=== PATIENT | male | born 1950 | race Caucasian/White ===

== ENCOUNTER 2016-08-07 16:06 | Observation (INO) | payer OTHER ==
[~2016-08-07] VITALS: Ht 162.6 cm; Wt 127.0 kg
[~2016-08-07 16:06] MED LIST: ADULT LOW DOSE81 M1 PO; ADVAIR 250/501 DIS1 IH; ADVAIR 250/501 DISK IH; ASPIRIN81 M1 PO; BENICAR20 MG PO; Benicar PO; CLARITIN10 M3 PO; COMBIVENT INH14.7 GM IH; COMBIVENT RESPIM4 GM IH; COMBIVENT200 INHALA IH; CYANOCOBALAM1000 MCG PO; DESYREL12.5 MG PO; Desyrel PO; EXELON6 MG PO; FOLIC ACID1 MG PO; GLIPIZIDE XL5 MG PO; GLIPIZIDE5 M1 PO; GLUCOPHAGE1000 MG PO; GLUCOPHAGE500 MG PO; IMDUR60 MG PO; ISOSORBIDE MONO60 MG PO; LANTUS 3 M100 UNITS/ SC; LEVAQUIN500 MG PO; LO-DOSE ASPIRIN81 M1 PO; LORATADINE10 M2 PO; METFORMIN HCL1000 MG PO; NAPROXEN500 MG PO; NOVOLOG 10100 UNITS/ SC; NOVOLOG PE100 UNITS/ SC; OMEPRAZOLE40 M1 PO; RANITIDINE HCL150 MG PO; RIVASTIGMINE6 MG PO; Ranitidine HCl PO; SIMVASTATIN40 M1 PO; SIMVASTATIN40 MG PO; TRAZODONE HCL50 MG PO; Tums,OsCal PO; VITAMIN B-121000 MCG PO; ZANTAC150 M1 PO; ZITHROMAX250 MG PO; ZOCOR40 MG PO; Zocor PO
[2016-08-07 16:45] LABS: HEMATOCRIT 42.4 % (38.0-50.0); MCH 34.9 PG (29.0-34.0); MCHC 36.8 G/DL (30.0-36.0); MCV 94.9 FL (86-99); PLATELET COUNT 105 K/uL (156-360); RBC DIS.WIDTH-CV 12.1 % (11.8-14.6); RBC DIS.WIDTH-SD 40.9 % (39-53); RED BLOOD COUNT 4.47 M/uL (4.00-5.50); WHITE BLOOD COUNT 5.9 K/uL (4.1-10.2)
[2016-08-07 16:53] LABS: CHLORIDE 102 mEq/L (99-109); POTASSIUM 3.9 mEq/L (3.7-5.4); SODIUM 138 mEq/L (136-147)
[2016-08-07 16:55] LABS: GLUCOSE 142 mg/dL (70-99)
[2016-08-07 16:56] LABS: ANION GAP 13 MEQ/L (2-14)
[2016-08-07 16:59] LABS: GFR ESTIMATE (CALCULATED) > 59 mL/min/
[2016-08-07 17:00] LABS: UREA NITROGEN (BUN) 10 mg/dL (9-23)
[2016-08-07 17:05] LABS: TROP-I INTERPRETATION NEGATIVE; TROPONIN-I < 0.01 ng/mL (0.0-0.30)
[2016-08-07 22:17] VITALS: BP 108/75
[2016-08-07 22:17] LABS: POINT-OF-CARE METER ID UU14162513
[2016-08-07 23:25] LABS: TOTAL BILIRUBIN 1.1 mg/dL (0.0-1.0)
[2016-08-07 23:26] LABS: ALKALINE PHOSPHATASE 49 IU/L (3-129); INTER. NORMALIZED RATIO 1.1; PROTHROMBIN TIME 11.4 (9.2-11.2); PTT 30.3 (25-32); SERUM ETHYL ALCOHOL < 10 mg/dL
[2016-08-07 23:28] LABS: DIRECT BILIRUBIN 0.5 mg/dL (0.0-0.3)
[2016-08-07 23:34] LABS: TROP-I INTERPRETATION NEGATIVE; TROPONIN-I < 0.01 ng/mL (0.0-0.30)
[2016-08-08 04:14] VITALS: BP 127/76
[2016-08-08 05:35] LABS: HEMATOCRIT 40.8 % (38.0-50.0); MCH 35.9 PG (29.0-34.0); MCV 96.9 FL (86-99); MEAN PLAT.VOLUME 11.5 uM^3 (9.0-12.4); PLATELET COUNT 103 K/uL (156-360); RBC DIS.WIDTH-CV 12.5 % (11.8-14.6); RBC DIS.WIDTH-SD 43.9 % (39-53); RED BLOOD COUNT 4.21 M/uL (4.00-5.50); WHITE BLOOD COUNT 5.7 K/uL (4.1-10.2)
[2016-08-08 06:03] LABS: ALKALINE PHOSPHATASE 47 IU/L (3-129); ANION GAP 8 MEQ/L (2-14); CHLORIDE 100 MEQ/L (99-109); GFR ESTIMATE (CALCULATED) > 59 mL/min/; POTASSIUM 3.6 MEQ/L (3.7-5.4); SAMPLE HEMOLYSIS CHECK 0; SAMPLE ICTERIC CHECK 0; SAMPLE LIPEMIA CHECK 0; SODIUM 135 MEQ/L (136-147); UREA NITROGEN (BUN) 10 mg/dL (9-23)
[2016-08-08 06:09] LABS: GLUCOSE 304 mg/dL (70-99)
[2016-08-08 06:14] LABS: TROP-I INTERPRETATION NEGATIVE; TROPONIN-I < 0.01 ng/mL (0.0-0.30)
[2016-08-08 06:54] LABS: Estimated Average Glucose 186 mg/dL (70-123); HEMOGLOBIN A1c (GLYCOHEMOGLOB) 8.1 % HGB (Below 5.7)
[2016-08-08 08:38] VITALS: BP 163/86
[2016-08-08 12:16] VITALS: BP 133/77
[2016-08-08 12:35] LABS: POINT-OF-CARE METER ID UU14162513
[2016-08-08 16:54] VITALS: BP 152/77
[2016-08-08 17:37] LABS: POINT-OF-CARE METER ID UU14162513
== END 2016-08-08 18:22 | disposition home or self-care (01) ==
LOC: EME → EDBD 16:06 → EDOF 20:41 → 5WEST 20:41 → EDOF 20:41 → 5WEST 21:46
PROVIDERS: Emergency Medicine; Hospitalist; Internal Medicine; Physician Assistant
DX: R07.89 Other chest pain (principal); I25.10 Atherosclerotic heart disease of native coronary artery without angina pectoris; E78.5 Hyperlipidemia, unspecified; I10 Essential (primary) hypertension; Z95.1 Presence of aortocoronary bypass graft; Z87.891 Personal history of nicotine dependence; R94.31 Abnormal electrocardiogram [ECG] [EKG]; Z79.82 Long term (current) use of aspirin; E11.9 Type 2 diabetes mellitus without complications; J44.9 Chronic obstructive pulmonary disease, unspecified; Z79.51 Long term (current) use of inhaled steroids; K21.9 Gastro-esophageal reflux disease without esophagitis; D69.6 Thrombocytopenia, unspecified; G30.9 Alzheimer's disease, unspecified; F02.80 Dementia in other diseases classified elsewhere, unspecified severity, without behavioral disturbance, psychotic disturbance, mood disturbance, and anxiety; K74.60 Unspecified cirrhosis of liver
CPT/HCPCS: 71020; 80048; 80053; 80076; 82948; 83036; 84484; 85027; 85379; 85610; 85730; 93005; 93306; 94640; 94640 76; 94760; 99202; 99281; 99285; G0378; G0480; J1644; J1815; J2270; J2405

== ENCOUNTER 2016-10-13 10:17 | Emergency (ER) | payer OTHER ==
[~2016-10-13] VITALS: Ht 162.6 cm; Wt 126.2 kg
[2016-10-13 10:52] LABS: BASOPHIL COUNT 0.1 K/uL (0-0.1); EOSINOPHIL (%) 2.2 % (0-5); EOSINOPHIL COUNT 0.1 K/uL (0-0.3); HEMATOCRIT 44.9 % (38.0-50.0); IMMATURE GRANULOCYTE (%) 0.4 % (0.0-0.7); INSTRUMENT ABS NEUTROPHIL CT 3.2 K/uL; LYMPHOCYTE COUNT 1.3 K/uL (1.0-2.8); MCH 34.1 PG (29.0-34.0); MCHC 35.9 G/DL (30.0-36.0); MCV 95.1 FL (86-99); MEAN PLAT.VOLUME 10.5 uM^3 (9.0-12.4); MONOCYTE (%) 15.4 % (3-12); MONOCYTE COUNT 0.9 K/uL (0-0.8); NEUTROPHIL (%) 57.2 % (45-76); NEUTROPHIL COUNT 3.2 K/uL (1.8-6.4); PLATELET COUNT 124 K/uL (156-360); RBC DIS.WIDTH-CV 11.9 % (11.8-14.6); RBC DIS.WIDTH-SD 42.2 % (39-53); RED BLOOD COUNT 4.72 M/uL (4.00-5.50); WHITE BLOOD COUNT 5.5 K/uL (4.1-10.2)
[2016-10-13 11:01] LABS: CHLORIDE 106 mEq/L (99-109); POTASSIUM 3.8 mEq/L (3.7-5.4); SODIUM 138 mEq/L (136-147)
[2016-10-13 11:03] LABS: GLUCOSE 209 mg/dL (70-99)
[2016-10-13 11:04] LABS: ANION GAP 10 MEQ/L (2-14)
[2016-10-13 11:07] LABS: GFR ESTIMATE (CALCULATED) > 59 mL/min/
[2016-10-13 11:08] LABS: UREA NITROGEN (BUN) 11 mg/dL (9-23)
[2016-10-13 12:03] LABS: ADD MIUA? NO; BILIRUBIN NEGATIVE; BLOOD NEGATIVE; COLOR AMBER ((YELLOW)); GLUCOSE (STRIP) >=500; KETONES 5; LEUKOCYTES NEGATIVE; NITRITE NEGATIVE; PROTEIN (STRIP) 30; UCUL ADDED? NO
[2016-10-13] MEDS ORDERED: BACTRIM,SEPT1 TABLET PO (13:09)
[2016-10-13 14:01] VITALS: BP 122/70
== END 2016-10-13 14:02 | disposition home or self-care (01) ==
LOC: EME 10:17
DX: S93.402A Sprain of unspecified ligament of left ankle, initial encounter (principal); E11.9 Type 2 diabetes mellitus without complications; I10 Essential (primary) hypertension; I25.2 Old myocardial infarction; Z86.73 Personal history of transient ischemic attack (TIA), and cerebral infarction without residual deficits; Z86.79 Personal history of other diseases of the circulatory system
CPT/HCPCS: 73610; 80048; 81003; 83605; 85025; 99281; 99284

== ENCOUNTER 2017-02-06 09:47 | Emergency (ER) | payer OTHER ==
[~2017-02-06] VITALS: Ht 162.6 cm; Wt 120.0 kg
[~2017-02-06 09:47] MED LIST changes: +BACTRIM,SEPT1 TABLET PO
[2017-02-06 10:22] LABS: EOSINOPHIL (%) 2.2 % (0-5); EOSINOPHIL COUNT 0.1 K/uL (0-0.3); IMMATURE GRANULOCYTE (%) 0.2 % (0.0-0.7); INSTRUMENT ABS NEUTROPHIL CT 3.3 K/uL; LYMPHOCYTE COUNT 1.2 K/uL (1.0-2.8); MCH 34.5 PG (29.0-34.0); MCHC 36.4 G/DL (30.0-36.0); MCV 94.8 FL (86-99); MEAN PLAT.VOLUME 10.4 uM^3 (9.0-12.4); MONOCYTE COUNT 0.8 K/uL (0-0.8); NEUTROPHIL (%) 59.5 % (45-76); NEUTROPHIL COUNT 3.3 K/uL (1.8-6.4); PLATELET COUNT 100 K/uL (156-360); RBC DIS.WIDTH-CV 12.1 % (11.8-14.6); RBC DIS.WIDTH-SD 42.9 % (39-53); RED BLOOD COUNT 4.43 M/uL (4.00-5.50); WHITE BLOOD COUNT 5.5 K/uL (4.1-10.2)
[2017-02-06 10:36] LABS: CHLORIDE 105 mEq/L (99-109); POTASSIUM 3.6 mEq/L (3.7-5.4); SODIUM 137 mEq/L (136-147)
[2017-02-06 10:37] LABS: GLUCOSE 164 mg/dL (70-99)
[2017-02-06 10:39] LABS: ANION GAP 8 MEQ/L (2-14)
[2017-02-06 10:41] LABS: GFR ESTIMATE (CALCULATED) > 59 mL/min/
[2017-02-06 10:42] LABS: UREA NITROGEN (BUN) 13 mg/dL (9-23)
[2017-02-06 10:47] LABS: TROP-I INTERPRETATION NEGATIVE; TROPONIN-I < 0.01 ng/mL (0.0-0.30)
[2017-02-06 13:47] LABS: TROP-I INTERPRETATION NEGATIVE; TROPONIN-I < 0.01 ng/mL (0.0-0.30)
[2017-02-06 15:41] VITALS: BP 127/74
== END 2017-02-06 15:44 | disposition home or self-care (01) ==
LOC: EME 09:47
PROVIDERS: Emergency Medicine
DX: R07.89 Other chest pain (principal); I25.10 Atherosclerotic heart disease of native coronary artery without angina pectoris; I25.2 Old myocardial infarction; Z95.1 Presence of aortocoronary bypass graft; K21.9 Gastro-esophageal reflux disease without esophagitis; J44.9 Chronic obstructive pulmonary disease, unspecified; E11.9 Type 2 diabetes mellitus without complications; I10 Essential (primary) hypertension; F03.90 Unspecified dementia, unspecified severity, without behavioral disturbance, psychotic disturbance, mood disturbance, and anxiety; I73.9 Peripheral vascular disease, unspecified; Z86.73 Personal history of transient ischemic attack (TIA), and cerebral infarction without residual deficits; Z87.891 Personal history of nicotine dependence; Z79.84 Long term (current) use of oral hypoglycemic drugs; Z79.4 Long term (current) use of insulin; Z79.82 Long term (current) use of aspirin; Z79.899 Other long term (current) drug therapy
CPT/HCPCS: 71010; 80048; 84484; 85025; 93005; 99281; 99284

== ENCOUNTER 2017-11-10 10:30 | Inpatient (IN) | payer OTHER ==
[~2017-11-10] VITALS: Ht 162.6 cm; Wt 126.0 kg
[2017-11-10 11:06] LABS: HEMATOCRIT 42.5 % (38.0-50.0); HEMOGLOBIN 15.6 G/DL (12.5-16.6); MCH 35.8 PG (29.0-34.0); MCHC 36.7 G/DL (30.0-36.0); MCV 97.5 FL (86-99); PLATELET COUNT 100 K/uL (156-360); RBC DIS.WIDTH-CV 12.3 % (11.8-14.6); RBC DIS.WIDTH-SD 44.4 % (39-53); RED BLOOD COUNT 4.36 M/uL (4.00-5.50); WHITE BLOOD COUNT 5.2 K/uL (4.1-10.2)
[2017-11-10 11:15] LABS: CHLORIDE 104 mEq/L (99-109); POTASSIUM 3.9 mEq/L (3.7-5.4); SODIUM 138 mEq/L (136-147)
[2017-11-10 11:17] LABS: GLUCOSE 330 mg/dL (70-99)
[2017-11-10 11:21] LABS: CREATININE 0.9 mg/dL (0.6-1.3); GFR ESTIMATE (CALCULATED) > 59 mL/min/ (58.99-99999)
[2017-11-10 11:22] LABS: UREA NITROGEN (BUN) 12 mg/dL (9-23)
[2017-11-10 11:27] LABS: TROP-I INTERPRETATION NEGATIVE; TROPONIN-I < 0.01 ng/mL (0.0-0.30)
[2017-11-10] MEDS ORDERED: ZANTAC150 MG PO (12:40)
[2017-11-10] MEDS ORDERED: BASAGLAR K100 UNIT/1 SC (12:41)
[2017-11-10] MEDS ORDERED: ARICEPT5 MG PO (12:41)
[2017-11-10 15:13] LABS: HDL CHOLESTEROL 38 MG/DL (Desirable>=40); LDL CHOLESTEROL 45 mg/dL (Desirable<100); NON-HDL CHOLESTEROL 76 mg/dL (Desirable<160); TOTAL CHOLESTEROL 114 mg/dL (Desirable<200); TRIGLYCERIDES 156 MG/DL (Normal: <150)
[2017-11-10 15:39] VITALS: BP 130/86
[2017-11-10 15:54] LABS: BASE EXCESS 0.5 mEq/L (-3 to +3); BICARBONATE 25.4 mEq/L (22-26); COMMENTS - BLOOD GASES A+C+; DEVICE NC; METHEMOGLOBIN 1.4 % (0-1.5); O2 FLOW 2 L/MIN; PCO2 41 mm Hg (35-45); PO2 80 mm Hg (80-100); SITE RR; TOTAL RESP RATE 21 resp/min
[2017-11-10 16:00] VITALS: BP 130/86
[2017-11-10 18:16] LABS: TROP-I INTERPRETATION NEGATIVE; TROPONIN-I < 0.01 ng/mL (0.0-0.30)
[2017-11-10 19:00] VITALS: BP 122/68
[2017-11-10 22:30] VITALS: BP 127/70
[2017-11-11] VITALS (7 sets, daily range): BP systolic 98–142; BP diastolic 57–75
[2017-11-11 01:09] LABS: TROP-I INTERPRETATION NEGATIVE; TROPONIN-I < 0.01 ng/mL (0.0-0.30)
[2017-11-11 05:54] LABS: HEMATOCRIT 41.2 % (38.0-50.0); HEMOGLOBIN 14.9 G/DL (12.5-16.6); MCH 35.4 PG (29.0-34.0); MCHC 36.2 G/DL (30.0-36.0); MCV 97.9 FL (86-99); PLATELET COUNT 99 K/uL (156-360); RBC DIS.WIDTH-CV 12.4 % (11.8-14.6); RBC DIS.WIDTH-SD 44.7 % (39-53); RED BLOOD COUNT 4.21 M/uL (4.00-5.50); WHITE BLOOD COUNT 6.1 K/uL (4.1-10.2)
[2017-11-11 06:18] LABS: ALBUMIN 3.4 G/DL (3.2-4.8); ALKALINE PHOSPHATASE 41 IU/L (3-129); ALT (GPT) 17 IU/L (3-49); AST (GOT) 18 IU/L (2-34); CHLORIDE 103 MEQ/L (99-109); CREATININE 0.8 MG/DL (0.6-1.3); GFR ESTIMATE (CALCULATED) > 59 mL/min/ (58.99-99999); GLUCOSE 240 mg/dL (70-99); POTASSIUM 3.4 MEQ/L (3.7-5.4); SODIUM 139 MEQ/L (136-147); TOTAL BILIRUBIN 0.9 MG/DL (0.0-1.0); TOTAL PROTEIN 6.2 G/DL (6.4-8.3); UREA NITROGEN (BUN) 9 mg/dL (9-23)
[2017-11-11 10:54] LABS: HEMOGLOBIN A1c (GLYCOHEMOGLOB) 7.9 % (Below 5.7)
[2017-11-12 04:04] VITALS: BP 127/69
[2017-11-12 04:33] LABS: HEMATOCRIT 44.9 % (38.0-50.0); HEMOGLOBIN 16.5 G/DL (12.5-16.6); MCH 35.6 PG (29.0-34.0); MCHC 36.7 G/DL (30.0-36.0); PLATELET COUNT 100 K/uL (156-360); RBC DIS.WIDTH-CV 12.1 % (11.8-14.6); RBC DIS.WIDTH-SD 43.5 % (39-53); RED BLOOD COUNT 4.63 M/uL (4.00-5.50); WHITE BLOOD COUNT 6.4 K/uL (4.1-10.2)
[2017-11-12 04:46] LABS: CHLORIDE 103 mEq/L (99-109)
[2017-11-12 04:47] LABS: SODIUM 140 mEq/L (136-147)
[2017-11-12 04:48] LABS: GLUCOSE 211 mg/dL (70-99)
[2017-11-12 04:52] LABS: CREATININE 0.8 mg/dL (0.6-1.3); GFR ESTIMATE (CALCULATED) > 59 mL/min/ (58.99-99999)
[2017-11-12 04:53] LABS: UREA NITROGEN (BUN) 9 mg/dL (9-23)
[2017-11-12 07:03] VITALS: BP 121/68
[2017-11-12 10:54] VITALS: BP 112/55
[2017-11-12 15:55] VITALS: BP 111/58
[2017-11-12 19:35] VITALS: BP 109/58
[2017-11-12 23:14] VITALS: BP 100/55
[2017-11-13 03:56] VITALS: BP 127/82
[2017-11-13 06:24] LABS: HEMATOCRIT 45.8 % (38.0-50.0); HEMOGLOBIN 16.3 G/DL (12.5-16.6); MCH 34.6 PG (29.0-34.0); MCHC 35.6 G/DL (30.0-36.0); MCV 97.2 FL (86-99); PLATELET COUNT 109 K/uL (156-360); RBC DIS.WIDTH-CV 12.2 % (11.8-14.6); RBC DIS.WIDTH-SD 43.8 % (39-53); RED BLOOD COUNT 4.71 M/uL (4.00-5.50); WHITE BLOOD COUNT 5.4 K/uL (4.1-10.2)
[2017-11-13 06:38] LABS: CHLORIDE 103 MEQ/L (99-109); CREATININE 0.8 MG/DL (0.6-1.3); GFR ESTIMATE (CALCULATED) > 59 mL/min/ (58.99-99999); GLUCOSE 184 mg/dL (70-99); POTASSIUM 3.6 MEQ/L (3.7-5.4); SODIUM 140 MEQ/L (136-147); UREA NITROGEN (BUN) 11 mg/dL (9-23)
[2017-11-13 07:52] VITALS: BP 144/81
[2017-11-13 11:40] VITALS: BP 124/70
[2017-11-13 15:19] VITALS: BP 118/65
[2017-11-13 20:40] VITALS: BP 110/59
[2017-11-14 00:29] VITALS: BP 120/68
[2017-11-14 04:28] VITALS: BP 118/56
[2017-11-14 05:38] LABS: HEMATOCRIT 45.7 % (38.0-50.0); HEMOGLOBIN 16.4 G/DL (12.5-16.6); MCHC 35.9 G/DL (30.0-36.0); MCV 97.6 FL (86-99); PLATELET COUNT 112 K/uL (156-360); RBC DIS.WIDTH-CV 12.4 % (11.8-14.6); RBC DIS.WIDTH-SD 44.8 % (39-53); RED BLOOD COUNT 4.68 M/uL (4.00-5.50); WHITE BLOOD COUNT 6.7 K/uL (4.1-10.2)
[2017-11-14 05:57] LABS: CHLORIDE 102 MEQ/L (99-109); CREATININE 0.8 MG/DL (0.6-1.3); GFR ESTIMATE (CALCULATED) > 59 mL/min/ (58.99-99999); GLUCOSE 202 mg/dL (70-99); POTASSIUM 3.4 MEQ/L (3.7-5.4); SODIUM 138 MEQ/L (136-147); UREA NITROGEN (BUN) 14 mg/dL (9-23)
[2017-11-14 08:35] VITALS: BP 126/83
[2017-11-14 12:00] VITALS: BP 96/52
[2017-11-14 16:00] VITALS: BP 132/86
[2017-11-14 19:16] VITALS: BP 145/76
[2017-11-15 00:03] VITALS: BP 107/56
[2017-11-15 03:34] VITALS: BP 111/55
[2017-11-15 03:57] VITALS: BP 135/76
[2017-11-15 05:27] LABS: BASOPHIL (%) 0.6 % (0-1); BASOPHIL COUNT 0.1 K/uL (0-0.1); EOSINOPHIL (%) 0.4 % (0-5); HEMATOCRIT 44.8 % (38.0-50.0); IMMATURE GRANULOCYTE (%) 0.5 % (0.0-0.7); LYMPHOCYTE (%) 14.2 % (15-42); LYMPHOCYTE COUNT 1.4 K/uL (1.0-2.8); MCH 34.3 PG (29.0-34.0); MCHC 35.7 G/DL (30.0-36.0); MCV 96.1 FL (86-99); MONOCYTE (%) 14.8 % (3-12); MONOCYTE COUNT 1.5 K/uL (0-0.8); NEUTROPHIL (%) 69.5 % (45-76); NEUTROPHIL COUNT 7.1 K/uL (1.8-6.4); PLATELET COUNT 123 K/uL (156-360); RBC DIS.WIDTH-SD 42.7 % (39-53); RED BLOOD COUNT 4.66 M/uL (4.00-5.50); WHITE BLOOD COUNT 10.2 K/uL (4.1-10.2)
[2017-11-15 05:50] LABS: CHLORIDE 101 MEQ/L (99-109); CREATININE 0.8 MG/DL (0.6-1.3); GFR ESTIMATE (CALCULATED) > 59 mL/min/ (58.99-99999); GLUCOSE 252 mg/dL (70-99); POTASSIUM 3.6 MEQ/L (3.7-5.4); SODIUM 136 MEQ/L (136-147); UREA NITROGEN (BUN) 15 mg/dL (9-23)
[2017-11-15 08:17] VITALS: BP 146/89
[2017-11-15 12:00] VITALS: BP 126/74
[2017-11-15] MEDS ORDERED: FUROSEMIDE40 MG PO (13:00)
[2017-11-15] MEDS ORDERED: CEFTIN500 MG PO (13:00)
[2017-11-15] MEDS ORDERED: PROAIR RESPICL90 MCG IH (13:00)
[2017-11-15] MEDS ORDERED: PREDNISONE20 MG PO (13:00)
[2017-11-15] MEDS ORDERED: LEVEMIR100 UNIT/2 SC (13:00)
== END 2017-11-15 14:46 | disposition home or self-care (01) | DRG 291 ==
LOC: EME 10:30 → EDOF 13:38 → 4EAST 13:38 → ENRESERV 13:43 → EDOF 13:54 → ENRESERV 14:12 → 4EAST 15:18
PROVIDERS: Emergency Medicine; Internal Medicine; Physician Assistant
DX: I11.0 Hypertensive heart disease with heart failure (principal); I50.33 Acute on chronic diastolic (congestive) heart failure; J15.9 Unspecified bacterial pneumonia; J44.0 Chronic obstructive pulmonary disease with (acute) lower respiratory infection; J44.1 Chronic obstructive pulmonary disease with (acute) exacerbation; E87.6 Hypokalemia; E11.65 Type 2 diabetes mellitus with hyperglycemia; E78.5 Hyperlipidemia, unspecified; I25.10 Atherosclerotic heart disease of native coronary artery without angina pectoris; G40.909 Epilepsy, unspecified, not intractable, without status epilepticus; K21.9 Gastro-esophageal reflux disease without esophagitis; F03.90 Unspecified dementia, unspecified severity, without behavioral disturbance, psychotic disturbance, mood disturbance, and anxiety; E11.51 Type 2 diabetes mellitus with diabetic peripheral angiopathy without gangrene; F32.9 Major depressive disorder, single episode, unspecified; K74.60 Unspecified cirrhosis of liver; E66.2 Morbid (severe) obesity with alveolar hypoventilation; F79 Unspecified intellectual disabilities; Z95.1 Presence of aortocoronary bypass graft; Z87.891 Personal history of nicotine dependence; I25.2 Old myocardial infarction; Z86.73 Personal history of transient ischemic attack (TIA), and cerebral infarction without residual deficits; Z79.82 Long term (current) use of aspirin; Z79.4 Long term (current) use of insulin; Z91.19 Patient's noncompliance with other medical treatment and regimen
CPT/HCPCS: 36600; 71045; 71275; 80048; 80053; 80061; 81003; 82803; 82948; 83036; 83880; 84484; 85025; 85027; 93005; 93306; 94640; 94640 76; 94760; 94799; 99202; 99281; 99285; J0696; J1650; J1815; J1940; J3010; J7512

== ENCOUNTER → 2018-01-22 | Outpatient (CLI) | payer OTHER ==
[~2018-01-22] VITALS: Ht 162.6 cm; Wt 136.0 kg
[~2018-01-22] MED LIST changes: +ARICEPT5 MG PO; +BASAGLAR K100 UNIT/1 SC; +CEFTIN500 MG PO; +FUROSEMIDE40 MG PO; +LEVEMIR100 UNIT/2 SC; +PREDNISONE20 MG PO; +PROAIR RESPICL90 MCG IH; +ZANTAC150 MG PO
== END | disposition home or self-care (01) ==
LOC: AMB 13:29
PROVIDERS: Internal Medicine Gastroenterology
PROC: 0DBN8ZX Excision of Sigmoid Colon, Via Natural or Artificial Opening Endoscopic, Diagnostic (ICD-10-PCS; principal; 2018-01-22)
DX: K63.5 Polyp of colon (principal); K57.30 Diverticulosis of large intestine without perforation or abscess without bleeding; K64.8 Other hemorrhoids
CPT/HCPCS: 82948; 88305